=== PATIENT | male | born 1940 | race African-American/Black ===

== ENCOUNTER 2017-01-24 23:17 | Emergency (ER) | payer OTHER ==
[~2017-01-24] VITALS: Ht 170.2 cm; Wt 75.0 kg
[~2017-01-24 23:17] MED LIST: ACET500C PO; ATEN50TA PO; DESM1TAB16 PO; OSEL75 PO
[2017-01-24 23:31] VITALS: BP 122/58; PULSE 64; RESP 18; TEMP 98.3; O2SAT 98
[2017-01-24 23:52] VITALS: BP 122/58; PULSE 64; RESP 18; TEMP 98.3; O2SAT 98
[2017-01-24] MEDS ORDERED: SODIUM CHLOR 0.9% 1000 ML INJ 1,000 ML IV SCH (23:57)
--- NOTE | 2017-01-24 23:57 | PD ---
HPI Chief Complaint: allergic reaction Time Seen by Provider: 23:49 Travel History International Travel<30 days: No Contact w/Intl Traveler<30days: No Traveled to known affect area: No History of Present Illness HPI The patient is a 76-year-old male that at approximately 9 PM today was breathing epoxy fumes as his pipes were being fixed. Almost immediately he began getting some chest tightness and short of breath. He denies any wheezing , syncopal or near syncopal spells. He denies any skin rash. He denies any history of heart disease. PFSH Past Medical History Hx Anticoagulant Therapy: No Arthritis: Yes (BACK AND NECK) Asthma: No Autoimmune Disease: No Blood Disorders: No Anxiety: Yes Depression: Yes Heart Rhythm Problems: No Cancer: No Cardiovascular Problems: Yes (HTN) High Cholesterol: Yes Chemotherapy: No Chest Pain: No Congestive Heart Failure: No COPD: No Cerebrovascular Accident: No Developmental Delay: No Diabetes: No Diminished Hearing: No Endocrine: No Gastrointestinal Disorders: Yes GERD: No Glaucoma: No Genitourinary: No Headaches: Yes Hepatitis: No Hiatal Hernia: No Heparin Induced Thrombocytopen: No Hypertension: Yes Immune Disorder: No Implanted Vascular Access Dvce: No Kidney Stones: No 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) Psychiatric: Yes Reproductive: No Respiratory: No Immunizations Current: No Migraines: No Myocardial Infarction: No Radiation Therapy: No Renal Failure: No Seizures: No Sickle Cell Disease: No Sleep Apnea: No Thyroid Disease: No Ulcer: Yes Past Surgical History Abdominal Surgery: No Appendectomy: No Cardiac Surgery: No Cholecystectomy: No Ear Surgery: No Endocrine Surgery: No Eye Surgery: No Genitourinary Surgery: No Gynecologic Surgery: No Neurologic Surgery: No Oral Surgery: No Thoracic Surgery: No Tonsillectomy: Yes Other Surgery: No Social History Alcohol Use: No Tobacco Use: No Substance Use: Yes (MARIJUANA) Allergies-Medications (Allergen,Severity, Reaction): Coded Allergies: iodine (Verified Allergy, Severe, Swelling, 01/25/17) potassium iodide (Verified Allergy, Severe, Swelling, 01/25/17) povidone-iodine (Verified Allergy, Severe, Swelling, 01/25/17) sodium iodide (Verified Allergy, Severe, Swelling, 01/25/17) sodium iodide (Verified Allergy, Severe, Swelling, 01/25/17) Reported Meds & Prescriptions Reported Meds & Active Scripts Active Zantac (Ranitidine HCl) 150 Mg Tab 150 Mg PO BID Prednisone 50 Mg Tab 50 Mg PO BID 3 Days Tamiflu (Oseltamivir Phosphate) 75 Mg Cap 75 Mg PO BID 5 Days Reported Desmopressin (Desmopressin Acetate) 0.2 Mg Tab 0.2 Mg PO HS Atenolol 50 Mg Tab 50 Mg PO DAILY Review of Systems Except as stated in HPI: all other systems reviewed are Neg Physical Exam Narrative GENERAL: The patient is alert, oriented 3 and slight apparent distress with his chest/lung discomfort. His blood pressure is 122/58 but the rest of his vital signs are normal. SKIN: Focused skin assessment warm/dry. No skin rash is present. HEAD: Atraumatic. Normocephalic. EYES: Pupils equal and round. No scleral icterus. No injection or drainage. ENT: No nasal bleeding or discharge. Mucous membranes pink and moist. NECK: Trachea midline. No JVD. CARDIOVASCULAR: Regular rate and rhythm. No murmur appreciated. RESPIRATORY: No accessory muscle use. Clear to auscultation. Breath sounds equal bilaterally. Specifically, no wheezes are heard. GASTROINTESTINAL: Abdomen soft, non-tender, nondistended. Hepatic and splenic margins not palpable. MUSCULOSKELETAL: No obvious deformities. No clubbing. No cyanosis. No edema. NEUROLOGICAL: Awake and alert. No obvious cranial nerve deficits. Motor grossly within normal limits. Normal speech. PSYCHIATRIC: Appropriate mood and affect; insight and judgment normal. Data Data Last Documented VS Vital Signs Date Time Temp Pulse Resp B/P (MAP) Pulse Ox O2 Delivery O2 Flow Rate FiO2 01/25/17 00:36 66 18 139/75 (96) 99 Room Air 01/24/17 23:52 98.3 Orders Orders Ecg Monitoring (01/24/17 23:57) Iv Access Insert/Monitor (01/24/17 23:57) Oximetry (01/24/17 23:57) Diphenhydramine Inj (Benadryl Inj) (01/25/17 00:00) Albuterol-Ipratropium Neb (Duoneb Neb) (01/25/17 00:00) Sodium Chlor 0.9% 1000 Ml Inj (Ns 1000 M (01/24/17 23:57) Sodium Chloride 0.9% Flush (Ns Flush) (01/25/17 00:00) Epinephrine (1:1000) Inj (Adrenalin (1:1 (01/25/17 00:00) Electrocardiogram (01/24/17 23:57) Complete Blood Count With Diff (01/24/17 23:57) Basic Metabolic Panel (Bmp) (01/24/17 23:57) Creatine Kinase (Cpk) (01/24/17 23:57) Troponin I (01/24/17 23:57) Labs Laboratory Tests Test 01/25/17 00:20 White Blood Count 4.4 TH/MM3 Red Blood Count 3.77 MIL/MM3 Hemoglobin 11.6 GM/DL Hematocrit 34.2 % Mean Corpuscular Volume 90.7 FL Mean Corpuscular Hemoglobin 30.9 PG Mean Corpuscular Hemoglobin Concent 34.1 % Red Cell Distribution Width 13.8 % Platelet Count 235 TH/MM3 Mean Platelet Volume 7.3 FL Neutrophils (%) (Auto) 29.6 % Lymphocytes (%) (Auto) 57.1 % Monocytes (%) (Auto) 7.9 % Eosinophils (%) (Auto) 4.9 % Basophils (%) (Auto) 0.5 % Neutrophils # (Auto) 1.3 TH/MM3 Lymphocytes # (Auto) 2.6 TH/MM3 Monocytes # (Auto) 0.3 TH/MM3 Eosinophils # (Auto) 0.2 TH/MM3 Basophils # (Auto) 0.0 TH/MM3 CBC Comment AUTO DIFF Differential Total Cells Counted 100 Neutrophils % (Manual) 23 % Lymphocytes % 67 % Monocytes % 7 % Eosinophils % 2 % Basophils % 1 % Neutrophils # (Manual) 1.0 TH/MM3 Differential Comment FINAL DIFF MANUAL Platelet Estimate NORMAL Platelet Morphology Comment NORMAL Red Cell Morphology Comment NORMAL Blood Urea Nitrogen 15 MG/DL Creatinine 1.30 MG/DL Random Glucose 104 MG/DL Calcium Level 8.3 MG/DL Sodium Level 138 MEQ/L Potassium Level 3.7 MEQ/L Chloride Level 106 MEQ/L Carbon Dioxide Level 25.8 MEQ/L Anion Gap 6 MEQ/L Estimat Glomerular Filtration Rate 65 ML/MIN Total Creatine Kinase 187 U/L Troponin I LESS THAN 0.02 NG/ML MDM Medical Decision Making Medical Screen Exam Complete: Yes Emergency Medical Condition: Yes Medical Record Reviewed: Yes Interpretation(s) The EKG shows sinus rhythm with rate of [address] elevation or depression. The CBC is normal except for hemoglobin 11.6 and hematocrit of 34.2. The basic metabolic profile is normal except for a calcium of 8.3 and GFR of 65. The cardiac enzymes are normal. Differential Diagnosis Allergic reaction, acute coronary syndrome, acute asthma Narrative Course It is now 1244 and the patient feels much better. He wants to go home. Diagnosis Primary Impression: Allergic reaction Additional Instructions: The Benadryl is one tablet 3 times daily. The prednisone is one tablet twice daily for 3 days followed by one tablet once daily for 3 days. The Zantac is one tablet twice daily. Follow-up with your primary care physician. Scripts Ranitidine (Zantac) 150 Mg Tab 150 MG PO BID for Reduce Stomach Acid, #20 TAB 0 Refills Prov: Manav Orozco MD 01/25/17 Prednisone (Prednisone) 50 Mg Tab 50 MG PO BID for x 3 days than daily X 3 days for 3 Days, #9 TAB 0 Refills Prov: Manav Orozco MD 01/25/17 Disposition: 01 DISCHARGE HOME Condition: Stable Manav Orozco MD Jan 24, 2017 23:57
[2017-01-25] MEDS ORDERED: EPINEPHrine HCL (1:1000) 1 MG/ML VIAL IM ONE
[2017-01-25] MEDS ORDERED: diphenhydrAMINE HCL 50 MG/ML VIAL IVP ONE
[2017-01-25] MEDS ORDERED: SODIUM CHLORIDE 0.9% FLUSH 10 ML FLUSH IV FLUSH PRN
[2017-01-25] MEDS: RESP: ALBUTEROL 2.5 MG/IPRATROPIUM 0.5 MG NEB (SCH) INH ×2 (00:09→00:21)
[2017-01-25 00:29] LABS: AUTOMATED NEUTROPHIL # 1.3 TH/MM3 (1.8-7.7); BASOPHIL % 0.5 % (0.0-2.0); EOSINOPHIL # 0.2 TH/MM3 (0-0.4); EOSINOPHIL % 4.9 % (0.0-4.0); HEMATOCRIT 34.2 % (39.0-51.0); LYMPH % 57.1 % (9.0-44.0); LYMPHOCYTE # 2.6 TH/MM3 (1.0-4.8); MEAN CELL VOLUME 90.7 FL (80.0-100.0); MEAN CORPUSCULAR HEMOGLOBIN 30.9 PG (27.0-34.0); MEAN CORPUSCULAR HGB CONC 34.1 % (32.0-36.0); MONO % 7.9 % (0.0-8.0); NEUT % 29.6 % (16.0-70.0); PLATELET COUNT 235 TH/MM3 (150-450); RED BLOOD COUNT 3.77 MIL/MM3 (4.50-5.90); RED CELL DISTRIBUTION WIDTH 13.8 % (11.6-17.2); WHITE BLOOD COUNT 4.4 TH/MM3 (4.0-11.0)
[2017-01-25 00:34] LABS: HEMO FLAGS AUTO DIFF
[2017-01-25 00:36] VITALS: BP_SYST 139; BP_DIAS 7; BP_DIAS 75; PULSE 66; RESP 18; O2SAT 99
[2017-01-25 00:58] LABS: BASOPHILS 1 % (0-2); EOSINOPHILS 2 % (0-4); PLATELET ESTIMATE SMEAR NORMAL (NORMAL); PLATELET MORPHOLOGY NORMAL (NORMAL); POLYS (SEG NEUTROPHILS) 23 % (16-70); SCAN/DIFF FINAL DIFF MANUAL; WBC DIFF SAMPLE 100
[2017-01-25 01:04] LABS: CHLORIDE 106 MEQ/L (98-107); POTASSIUM 3.7 MEQ/L (3.5-5.1); SODIUM (NA) 138 MEQ/L (136-145)
[2017-01-25] MEDS ORDERED: PRED50 PO (01:05)
[2017-01-25] MEDS ORDERED: ZANT150T2 PO (01:06)
[2017-01-25 01:07] LABS: ANION GAP 6 MEQ/L (5-15); BICARBONATE 25.8 MEQ/L (21.0-32.0); BLOOD UREA NITROGEN 15 MG/DL (7-18)
[2017-01-25 01:11] LABS: GLOMERULAR FILTRATION RATE 65 ML/MIN (>89)
[2017-01-25 01:14] LABS: CREATINE KINASE 187 U/L (39-308)
[2017-01-25 01:58] VITALS: BP 120/65
--- NOTE | 2017-01-25 09:15 | EKG ---
Date Performed: 01/25/2017 Time Performed: 00:07:37 PTAGE: 76 years EKG: Sinus rhythm NONSPECIFIC T-WAVE ABNORMALITY BORDERLINE ECG PREVIOUS TRACING : 04/09/2016 08.45 Compared to prior tracing no significant change DOCTOR: Albaro Solis Interpretating Date/Time 01/25/2017 09:13:01
== END 2017-01-25 02:18 | disposition home or self-care (01) ==
LOC: PHED 23:17
DX: T78.40XA Allergy, unspecified, initial encounter (principal)
CPT/HCPCS: 80048; 82550; 84484; 85007; 85027; 93005; 94640; 94664; 96361; 96372; 96374; 99284; J0171; J1200; J7030

== ENCOUNTER 2017-04-14 08:02 | Emergency (ER) | payer OTHER ==
[~2017-04-14] VITALS: Ht 170.2 cm; Wt 74.0 kg
[~2017-04-14 08:02] MED LIST changes: -ACET500C PO; +PRED50 PO; +ZANT150T2 PO
[2017-04-14 08:09] VITALS: BP 103/58; PULSE 69; RESP 18; TEMP 97.7; O2SAT 97
[2017-04-14] MEDS ORDERED: HYDR-3583 PO (08:20)
[2017-04-14 09:52] LABS: AUTOMATED NEUTROPHIL # 1.1 TH/MM3 (1.8-7.7); BASOPHIL % 1.1 % (0.0-2.0); EOSINOPHIL # 0.2 TH/MM3 (0-0.4); HEMATOCRIT 34.6 % (39.0-51.0); HEMO FLAGS DIFF FINAL; LYMPHOCYTE # 1.2 TH/MM3 (1.0-4.8); MEAN CELL VOLUME 90.2 FL (80.0-100.0); MEAN CORPUSCULAR HGB CONC 33.3 % (32.0-36.0); NEUT % 42.9 % (16.0-70.0); PLATELET COUNT 206 TH/MM3 (150-450); RED BLOOD COUNT 3.83 MIL/MM3 (4.50-5.90); RED CELL DISTRIBUTION WIDTH 13.5 % (11.6-17.2); WHITE BLOOD COUNT 2.7 TH/MM3 (4.0-11.0)
[2017-04-14 10:03] LABS: APTT (PATIENT) 32.7 SEC (24.3-30.1); PROTHROMBIN TIME - PATIENT 10.6 SEC (9.8-11.6)
--- NOTE | 2017-04-14 10:10 | RADRPT ---
EXAM DATE/TIME: 04/14/2017 09:46 [facility] COMPARISON: CT ABDOMEN & PELVIS W/O CONTRAST, May 27, 2014, 23:34. INDICATIONS : Diffuse abdominal pain and diarrhea x 2 days. ORAL CONTRAST: No oral contrast ingested. RADIATION DOSE: 6.87 CTDIvol (mGy) MEDICAL HISTORY : Hypertension. SURGICAL HISTORY : None. ENCOUNTER: Initial ACUITY: 2 days PAIN SCALE: 9/10 LOCATION: Diffuse abdomen. TECHNIQUE: Volumetric scanning of the abdomen and pelvis was performed. Using automated exposure control and ad justment of the mA and/or kV according to patient size, radiation dose was kept as low as reasonably achievable to obtain optimal diagnostic quality images. DICOM format image data is available electro nically for review and comparison. FINDINGS: LOWER LUNGS: Posterior bibasilar atelectasis and/or mild infiltrates are noted. LIVER: Homogeneous density without lesion. There is no dilation of the biliary tree. No calcified gallston es. SPLEEN: Normal size without lesion. PANCREAS: Within normal limits. KIDNEYS: Normal in size and shape. There is no solid mass, stone, or hydronephrosis. There is a large 7.6 cm stable left renal cyst. ADRENAL GLANDS: Within normal limits. VASCULAR: There is no aortic aneurysm. BOWEL/MESENTERY: Extensive uncomplicated colonic diverticulosis is noted. No acute diverticulitis is noted. The append ix is normal. ABDOMINAL WALL: There is a small left inguinal hernia containing only fat. RETROPERITONEUM: There is no lymphadenopathy. BLADDER: No wall thickening or mass. REPRODUCTIVE: Within normal limits. INGUINAL: There is no lymphadenopathy. MUSCULOSKELETAL: Within normal limits for patient age. CONCLUSION: 1. Uncomplicated colonic diverticulosis. 2. Small left inguinal hernia containing only fat. 3. Stable left renal cyst measuring 7.6 cm. 4. Minimal posterior bibasilar atelectasis and/or mild infiltrates. Hernesto Mendez MD on April 14, 2017 at 10:03 Board Certified Radiologist. This report was verified electronically.
--- NOTE | 2017-04-14 10:13 | RADRPT ---
EXAM DATE/TIME: 04/14/2017 09:49 [facility] COMPARISON: CHEST SINGLE AP, April 09, 2016, 9:01. INDICATIONS : Cough, congestion, short of breath. MEDICAL HISTORY : Hypertension. SURGICAL HISTORY : None. ENCOUNTER: Initial ACUITY: 3 days PAIN SCORE: 0/10 LOCATION: Bilateral chest FINDINGS: A single view of the chest demonstrates the lungs to be symmetrically aerated without evidence of mas s, infiltrate or effusion. The cardiomediastinal contours are unremarkable. Osseous structures are intact. CONCLUSION: No acute cardiopulmonary process. Panchito Castorena MD on April 14, 2017 at 10:11 Board Certified Radiologist. This report was verified electronically.
--- NOTE | 2017-04-14 10:16 | PD ---
HPI Chief Complaint: Cold / Flu Symptoms Time Seen by Provider: 09:20 Travel History International Travel<30 days: No Contact w/Intl Traveler<30days: No Traveled to known affect area: No History of Present Illness HPI 76yo M here with SIADH here with multiple complaints. Said he has been coughing , having throat pain, generalized weakness, abdominal cramping, diarrhea for a few days. Also feels a little sob. Arnett warm last night. Denies any chest pain, vomiting, dysuria, hematuria, focal weakness or numbness. PFSH Past Medical History Hx Anticoagulant Therapy: No Arthritis: Yes (BACK AND NECK) Asthma: No Autoimmune Disease: No Blood Disorders: No Anxiety: Yes Depression: Yes Heart Rhythm Problems: No Cancer: No Cardiovascular Problems: Yes (HTN) High Cholesterol: Yes Chemotherapy: No Chest Pain: No Congestive Heart Failure: No COPD: No Cerebrovascular Accident: No Developmental Delay: No Diabetes: No Diminished Hearing: No Endocrine: No Gastrointestinal Disorders: Yes GERD: No Glaucoma: No Genitourinary: No Headaches: Yes Hepatitis: No Hiatal Hernia: No Heparin Induced Thrombocytopen: No Hypertension: Yes Immune Disorder: No Implanted Vascular Access Dvce: No Kidney Stones: No 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) Psychiatric: Yes Reproductive: No Respiratory: No Immunizations Current: No Migraines: No Myocardial Infarction: No Radiation Therapy: No Renal Failure: No Seizures: No Sickle Cell Disease: No Sleep Apnea: No Thyroid Disease: No Ulcer: Yes Past Surgical History Abdominal Surgery: No Appendectomy: No Cardiac Surgery: No Cholecystectomy: No Ear Surgery: No Endocrine Surgery: No Eye Surgery: No Genitourinary Surgery: No Gynecologic Surgery: No Neurologic Surgery: No Oral Surgery: No Thoracic Surgery: No Tonsillectomy: Yes Other Surgery: No Social History Alcohol Use: No Tobacco Use: No Substance Use: Yes (MARIJUANA) Allergies-Medications (Allergen,Severity, Reaction): Coded Allergies: iodine (Verified Allergy, Severe, Swelling, 04/14/17) potassium iodide (Verified Allergy, Severe, Swelling, 04/14/17) povidone-iodine (Verified Allergy, Severe, Swelling, 04/14/17) sodium iodide (Verified Allergy, Severe, Swelling, 04/14/17) sodium iodide (Verified Allergy, Severe, Swelling, 11/16/17) Reported Meds & Prescriptions Reported Meds & Active Scripts Active Reported Hydrocodone-Acetaminophen 10-325 mg Tab 1 Tab PO Q6H PRN Desmopressin (Desmopressin Acetate) 0.2 Mg Tab 0.2 Mg PO HS Atenolol 50 Mg Tab 50 Mg PO DAILY Review of Systems Except as stated in HPI: all other systems reviewed are Neg Physical Exam Narrative GENERAL: 76yo M in mild distress. SKIN: Focused skin assessment warm/dry. HEAD: Atraumatic. Normocephalic. EYES: Pupils equal and round. No scleral icterus. No injection or drainage. ENT: Throat: Uvula midline. No erythema. NECK: Trachea midline. No JVD. CARDIOVASCULAR: Regular rate and rhythm. No murmur appreciated. RESPIRATORY: No accessory muscle use. Clear to auscultation. Breath sounds equal bilaterally. GASTROINTESTINAL: Abdomen soft, +TTP LUQ. No rebound tenderness or guarding. MUSCULOSKELETAL: No obvious deformities. No clubbing. No cyanosis. No edema. NEUROLOGICAL: Awake and alert. No obvious cranial nerve deficits. Motor grossly within normal limits. Normal speech. PSYCHIATRIC: Appropriate mood and affect; insight and judgment normal. Data Data Last Documented VS Vital Signs Date Time Temp Pulse Resp B/P (MAP) Pulse Ox O2 Delivery O2 Flow Rate FiO2 04/14/17 09:09 18 97 Room Air 04/14/17 08:09 97.7 69 103/58 (73) Orders Orders Electrocardiogram (04/14/17 ) Complete Blood Count With Diff (04/14/17 09:27) Basic Metabolic Panel (Bmp) (04/14/17 09:27) Prothrombin Time / Inr (Pt) (04/14/17 09:27) Act Partial Throm Time (Ptt) (04/14/17 09:27) Troponin I (04/14/17 09:27) Chest, Single Ap (04/14/17 ) Urinalysis - C+S If Indicated (04/14/17 09:27) Influenzae A/B Antigen (04/14/17 09:27) Group A Rapid Strep Screen (04/14/17 09:27) Magnesium (Mg) (04/14/17 09:27) Ct Abd/Pel W/O Iv Contrast (04/14/17 ) Strep Culture (Group A) (04/14/17 10:02) Guaifenesin Liq (Robitussin Liq) (04/14/17 11:30) Diazepam (Valium) (04/14/17 11:30) Labs Laboratory Tests Test 04/14/17 09:44 04/14/17 10:31 04/14/17 11:35 White Blood Count 2.7 TH/MM3 Red Blood Count 3.83 MIL/MM3 Hemoglobin 11.5 GM/DL Hematocrit 34.6 % Mean Corpuscular Volume 90.2 FL Mean Corpuscular Hemoglobin 30.0 PG Mean Corpuscular Hemoglobin Concent 33.3 % Red Cell Distribution Width 13.5 % Platelet Count 206 TH/MM3 Mean Platelet Volume 7.7 FL Neutrophils (%) (Auto) 42.9 % Lymphocytes (%) (Auto) 41.0 % Monocytes (%) (Auto) 7.0 % Eosinophils (%) (Auto) 8.0 % Basophils (%) (Auto) 1.1 % Neutrophils # (Auto) 1.1 TH/MM3 Lymphocytes # (Auto) 1.2 TH/MM3 Monocytes # (Auto) 0.2 TH/MM3 Eosinophils # (Auto) 0.2 TH/MM3 Basophils # (Auto) 0.0 TH/MM3 CBC Comment DIFF FINAL Differential Comment Prothrombin Time 10.6 SEC Prothromb Time International Ratio 1.0 RATIO Activated Partial Thromboplast Time 32.7 SEC Blood Urea Nitrogen 17 MG/DL Creatinine 1.20 MG/DL Random Glucose 83 MG/DL Calcium Level 8.3 MG/DL Magnesium Level 2.5 MG/DL Sodium Level 137 MEQ/L Potassium Level 4.1 MEQ/L Chloride Level 102 MEQ/L Carbon Dioxide Level 26.6 MEQ/L Anion Gap 8 MEQ/L Estimat Glomerular Filtration Rate 71 ML/MIN Troponin I LESS THAN 0.02 NG/ML Urine Collection Type CLEAN CATCH Urine Color YELLOW Urine Turbidity CLEAR Urine pH 6.0 Urine Specific [place] 1.025 Urine Protein NEG mg/dL Urine Glucose (UA) NEG mg/dL Urine Ketones NEG mg/dL Urine Occult Blood NEG Urine Nitrite NEG Urine Bilirubin NEG Urine Leukocyte Esterase NEG Urine RBC 0-3 /hpf Urine Squamous Epithelial Cells 0-5 /hpf Microscopic Urinalysis Comment CULT NOT INDICATED Urine Collection Time 11:35 [facility] Medical Decision Making Medical Screen Exam Complete: Yes Emergency Medical Condition: Yes Interpretation(s) EKG: NSR 66bpm. Normal axis. No ST segment elevation or depression. Differential Diagnosis Viral syndrome vs. influenza vs. diverticulitis vs. pneumonia vs. UTI Narrative Course 76yo M with multiple complaints. No fever or tachycardia. Labs reviewed, leukopenia with WBC 2.7. Pt has always had this before. Neutrophil # has not really changed from before. Normal platelet. H/H low at 11.5/34.6 but at baseline and pt said he has anemia and takes iron. BMP unremarkable. Troponin negative. CT a/p showed uncomplicated colonic diverticulosis. Small left inguinal hernia containing only fat. Minimal posterior bibasilar atelectasis and or mild infiltrates. Can cover with azithromycin. CXR negative. Denies any chest pain or sob now. Saturating at 97% on RA and not in distress. Pt is concern about his cough. Said it improved after robitussin. Pain also improved after valium. Abdomen is soft, NT/ND. UA negative. Influenza A and group A strep. [facility] Point of Care Internal Pos. & Neg. Controls: Passed Fecal Specimen Occult Blood: Negative Diagnosis Primary Impression: Viral syndrome Patient Instructions: General Instructions Departure Forms: Tests/Procedures Additional Instructions: Please follow up with your primary care physician in 1-2 days. Return to the ED if symptoms worsen. Med/Other Pt SpecificInfo: Prescription(s) given Scripts Acetaminophen (Tylenol) 325 Mg Tab 325 MG PO Q4H Y for PAIN SCALE 1 TO 4 for 5 Days, #30 TAB 0 Refills Prov: RamaChayito DO 04/14/17 Dextromethorphan (Robitussin Lingering Cold) 15 Mg Cap 30 MG PO Q6H Y for COUGH for 5 Days, #40 CAP 0 Refills Prov: Chayito Ontiveors DO 04/14/17 Azithromycin (Zithromax Z-Benjamín) 250 Mg Dspk 250 MG PO DIRECTED for Infection, #1 DSPK 0 Refills 500 MG (2 tabs) day 1, then 1 tab days 2-5. Prov: OntiverosChayito DO 04/14/17 Disposition: 01 DISCHARGE HOME Condition: Stable Chayito Ontiveros Apr 14, 2017 10:16
[2017-04-14 10:46] LABS: CHLORIDE 102 MEQ/L (98-107); POTASSIUM 4.1 MEQ/L (3.5-5.1); SODIUM (NA) 137 MEQ/L (136-145)
[2017-04-14 10:49] LABS: ANION GAP 8 MEQ/L (5-15); BICARBONATE 26.6 MEQ/L (21.0-32.0); BLOOD UREA NITROGEN 17 MG/DL (7-18); MAGNESIUM 2.5 MG/DL (1.5-2.5)
[2017-04-14 10:53] LABS: GLOMERULAR FILTRATION RATE 71 ML/MIN (>89)
[2017-04-14] MEDS ORDERED: guaiFENesin SOLUTION 200 MG/10 ML CUP PO ONE (11:30)
[2017-04-14] MEDS ORDERED: DIAZEPAM 5 MG TAB PO ONE (11:30)
[2017-04-14 11:45] LABS: BLOOD, URINE NEG (NEG); GLUCOSE,URINE NEG (NEG); KETONE, URINE NEG (NEG); NITRITE,URINE NEG (NEG)
[2017-04-14 11:57] LABS: COMMENT (UR) CULT NOT INDICATED; CULTURE IF INDICATED CULT NOT INDICATED; METHOD OF COLLECTION CLEAN CATCH; RBC, URINE 0-3 /hpf (0-3); SQUAMOUS EPITHELIAL CELL URINE 0-5 /hpf (0-5); URINE COLOR YELLOW (YELLW/STRAW)
[2017-04-14] MEDS ORDERED: ROBICAP2 PO (12:24)
[2017-04-14] MEDS ORDERED: ZITHTAB PO (12:24)
[2017-04-14] MEDS ORDERED: TYLE325T PO (12:24)
[2017-04-14 12:43] VITALS: BP 119/74
--- NOTE | 2017-04-15 15:26 | EKG ---
Date Performed: 04/14/2017 Time Performed: 10:06:25 PTAGE: 76 years EKG: Sinus rhythm NONSPECIFIC T-WAVE ABNORMALITY BORDERLINE ECG Since PREVIOUS TRACING , no significant change noted PREVIOUS TRACIN01/25/2017 00.07 DOCTOR: Amandeep Frances Interpretating Date/Time 04/15/2017 15:25:06
== END 2017-04-14 12:48 | disposition home or self-care (01) ==
LOC: PHED 08:02 → PHEFT 12:48
DX: B34.9 Viral infection, unspecified (principal); R06.02 Shortness of breath; R94.31 Abnormal electrocardiogram [ECG] [EKG]; R53.1 Weakness; F32.9 Major depressive disorder, single episode, unspecified; I10 Essential (primary) hypertension
CPT/HCPCS: 71010; 74176; 80048; 81001; 83735; 84484; 85025; 85610; 85730; 87081; 87804; 87880; 93005

== ENCOUNTER 2017-07-11 21:04 | Emergency (ER) | payer OTHER ==
[~2017-07-11] VITALS: Ht 170.2 cm; Wt 74.1 kg
[~2017-07-11 21:04] MED LIST changes: +HYDR-3583 PO; -OSEL75 PO; -PRED50 PO; +ROBICAP2 PO; +TYLE325T PO; -ZANT150T2 PO; +ZITHTAB PO
[2017-07-11 22:13] VITALS: BP 124/67; PULSE 55; RESP 18; TEMP 98.4; O2SAT 100
[2017-07-11] MEDS ORDERED: LORA1TAB12 PO (23:28)
[2017-07-11] MEDS ORDERED: CHOLESTEROL MED PO (23:29)
--- NOTE | 2017-07-11 23:48 | PD ---
HPI Chief Complaint: Pain: Acute or Chronic Time Seen by Provider: 23:47 Travel History International Travel<30 days: No Contact w/Intl Traveler<30days: No Traveled to known affect area: No History of Present Illness HPI 77-year-old male came to the emergency room with history of bilateral leg pain left worse than right and some shortness of breath. Since as that the leg pain has been going on for past couple days. He has had phlebitis in the legs but has never been on any blood thinners. He says his shortness of breath is better now. Signs were relatively stable. Patient appears to be in discomfort mainly from the leg pain he said. The pain is there constantly and worse when he walks. No history of fever or chills. No recent travel or prolonged immobilization due to surgery or hospitalization. PFSH Past Medical History Narrative Medical List of his past medical, surgical, social and family history reviewed from the nursing note. Hx Anticoagulant Therapy: Yes Arthritis: Yes (BACK AND NECK) Asthma: No Autoimmune Disease: No Blood Disorders: No Anxiety: Yes Depression: Yes Heart Rhythm Problems: No Cancer: No Cardiovascular Problems: Yes (HTN, PHLEBITIS) High Cholesterol: Yes Chemotherapy: No Chest Pain: No Congestive Heart Failure: No COPD: No Cerebrovascular Accident: No Developmental Delay: No Diabetes: No Diminished Hearing: No Endocrine: No Gastrointestinal Disorders: Yes GERD: No Glaucoma: No Genitourinary: No Headaches: Yes Hepatitis: No Hiatal Hernia: No Heparin Induced Thrombocytopen: No Hypertension: Yes Immune Disorder: No Implanted Vascular Access Dvce: No Kidney Stones: No 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) Psychiatric: Yes Reproductive: No Respiratory: No Immunizations Current: No Migraines: No Myocardial Infarction: No Radiation Therapy: No Renal Failure: No Seizures: No Sickle Cell Disease: No Sleep Apnea: No Thyroid Disease: No Ulcer: Yes Influenza Vaccination: Yes Past Surgical History Abdominal Surgery: No Appendectomy: No Cardiac Surgery: No Cholecystectomy: No Ear Surgery: No Endocrine Surgery: No Eye Surgery: No Genitourinary Surgery: No Gynecologic Surgery: No Neurologic Surgery: No Oral Surgery: No Thoracic Surgery: No Tonsillectomy: Yes Other Surgery: No Social History Alcohol Use: No Tobacco Use: No Substance Use: Yes (MARIJUANA) Allergies-Medications (Allergen,Severity, Reaction): Coded Allergies: iodine (Verified Allergy, Severe, Swelling, 07/12/17) potassium iodide (Verified Allergy, Severe, Swelling, 07/12/17) povidone-iodine (Verified Allergy, Severe, Swelling, 07/12/17) sodium iodide (Verified Allergy, Severe, Swelling, 07/12/17) sodium iodide (Verified Allergy, Severe, Swelling, 07/12/17) Comments List of his allergies reviewed from the nursing note. Reported Meds & Prescriptions Reported Meds & Active Scripts Active Xarelto Starter Pack 15 & 20 mg (Rivaroxaban) 15 Mg (42)- 20 Mg (9) Tab 1 Tab PO DIRECTED 30 Days Tylenol (Acetaminophen) 325 Mg Tab 325 Mg PO Q4H PRN 5 Days Reported [Cholesterol Med] 1 Tab PO HS Lorazepam 1 Mg Tab 1 Mg PO Q8H PRN Hydrocodone-Acetaminophen 10-325 mg Tab 1 Tab PO Q6H PRN Desmopressin (Desmopressin Acetate) 0.2 Mg Tab 0.2 Mg PO HS Atenolol 50 Mg Tab 50 Mg PO DAILY Narrative Medication List of his home medications reviewed from the nursing note. Review of Systems Except as stated in HPI: all other systems reviewed are Neg Respiratory: Positive: Shortness of Breath Musculoskeletal: Positive: Pain Physical Exam Narrative GENERAL: Awake, alert, moderate distress SKIN: Focused skin assessment warm/dry. HEAD: Atraumatic. Normocephalic. EYES: Pupils equal and round. No scleral icterus. No injection or drainage. ENT: No nasal bleeding or discharge. Mucous membranes pink and moist. NECK: Trachea midline. No JVD. CARDIOVASCULAR: Regular rate and rhythm. No murmur appreciated. RESPIRATORY: No accessory muscle use. Clear to auscultation. Breath sounds equal bilaterally. GASTROINTESTINAL: Abdomen soft, non-tender, nondistended. Hepatic and splenic margins not palpable. MUSCULOSKELETAL: No obvious deformities. No clubbing. No cyanosis. No edema. NEUROLOGICAL: Awake and alert. No obvious cranial nerve deficits. Motor grossly within normal limits. Normal speech. PSYCHIATRIC: Appropriate mood and affect; insight and judgment normal. Data Data Last Documented VS Vital Signs Date Time Temp Pulse Resp B/P (MAP) Pulse Ox O2 Delivery O2 Flow Rate FiO2 07/12/17 02:20 72 18 112/64 (80) 98 07/12/17 01:15 Room Air 07/11/17 22:13 98.4 Orders Orders Complete Blood Count With Diff (07/11/17 23:50) Basic Metabolic Panel (Bmp) (07/11/17 23:50) Prothrombin Time / Inr (Pt) (07/11/17 23:50) Creatine Kinase (Cpk) (07/11/17 23:50) Us Leg Venous Doppler Bilat (07/11/17 ) Ketorolac Inj (Toradol Inj) (07/12/17 00:00) Ketorolac Inj (Toradol Inj) (07/12/17 00:00) Rivaroxaban (Xarelto) (07/12/17 02:00) Ed Discharge Order (07/12/17 01:52) Labs Laboratory Tests Test 07/11/17 23:55 White Blood Count 3.9 TH/MM3 Red Blood Count 3.89 MIL/MM3 Hemoglobin 11.5 GM/DL Hematocrit 35.1 % Mean Corpuscular Volume 90.2 FL Mean Corpuscular Hemoglobin 29.6 PG Mean Corpuscular Hemoglobin Concent 32.9 % Red Cell Distribution Width 14.1 % Platelet Count 215 TH/MM3 Mean Platelet Volume 7.7 FL Neutrophils (%) (Auto) 25.3 % Lymphocytes (%) (Auto) 62.1 % Monocytes (%) (Auto) 6.7 % Eosinophils (%) (Auto) 4.9 % Basophils (%) (Auto) 1.0 % Neutrophils # (Auto) 1.0 TH/MM3 Lymphocytes # (Auto) 2.4 TH/MM3 Monocytes # (Auto) 0.3 TH/MM3 Eosinophils # (Auto) 0.2 TH/MM3 Basophils # (Auto) 0.0 TH/MM3 CBC Comment AUTO DIFF Differential Total Cells Counted 100 Neutrophils % (Manual) 24 % Lymphocytes % 42 % Monocytes % 6 % Eosinophils % 6 % Basophils % 2 % Neutrophils # (Manual) 0.9 TH/MM3 Differential Comment FINAL DIFF MANUAL Atypical Lymphocytes 20 % Platelet Estimate NORMAL Platelet Morphology Comment NORMAL Red Cell Morphology Comment NORMAL Prothrombin Time 10.5 SEC Prothromb Time International Ratio 1.0 RATIO Blood Urea Nitrogen 15 MG/DL Creatinine 1.10 MG/DL Random Glucose 100 MG/DL Calcium Level 8.3 MG/DL Sodium Level 133 MEQ/L Potassium Level 4.0 MEQ/L Chloride Level 100 MEQ/L Carbon Dioxide Level 28.7 MEQ/L Anion Gap 4 MEQ/L Estimat Glomerular Filtration Rate 78 ML/MIN Total Creatine Kinase 236 U/L MDM Medical Decision Making Medical Screen Exam Complete: Yes Emergency Medical Condition: Yes Medical Record Reviewed: Yes Differential Diagnosis DVT, PE, muscular skin pain, rhabdomyolysis Narrative Course 2:11 AM blood test results of back and within acceptable limits. Ultrasound of the legs showed left lower extremity nonocclusive DVT. I had ordered a CT pulmonary angiogram to rule out PE but I was pointed out that patient has allergic to IV contrast. At this point since he's not in any respiratory distress and hypoxic I'm comfortable starting him on Xarelto and discharging him home with a prescription for Xarelto. He does have a primary care. I have asked him to follow up with the primary care. This plan has been discussed with the patient and he understands. Procedures EKG Prior to Arrival: No Diagnosis Primary Impression: Deep venous thrombosis Qualified Codes: I82.412 - Acute embolism and thrombosis of left femoral vein Referrals: Primary Care Physician 3 days Additional Instructions: Please get the prescription filled and start taking it as per the direction. There is a coupon given for 1 month free supply which the pharmacy should honor. Return to the ER if the condition worsens or any other new concerns. Otherwise follow-up with your primary care to get further prescriptions for the blood thinners. Med/Other Pt SpecificInfo: Prescription(s) given Scripts Rivaroxaban Starter Pack 15 & 20 mg (Xarelto Starter Pack 15 & 20 mg) 15 Mg (42) - 20 Mg (9) Tab 1 TAB PO DIRECTED for Blood Clot Prevention for 30 Days, PACK 0 Refills Prov: Leanna Gillis MD 07/12/17 Disposition: 01 DISCHARGE HOME Condition: Stable Leanna Gillis MD Jul 11, 2017 23:48
[2017-07-12] MEDS ORDERED: KETOROLAC TROMETHAMINE 60 MG/2 ML (IM) VIAL IM ONE
[2017-07-12] MEDS ORDERED: KETOROLAC TROMETHAMINE 30 MG/ML (IVP) VIAL IV PUSH ONE
[2017-07-12 00:10] VITALS: BP 125/68; PULSE 70; RESP 18; O2SAT 100
[2017-07-12 00:21] LABS: EOSINOPHIL # 0.2 TH/MM3 (0-0.4); EOSINOPHIL % 4.9 % (0.0-4.0); HEMATOCRIT 35.1 % (39.0-51.0); HEMOGLOBIN 11.5 GM/DL (13.0-17.0); LYMPH % 62.1 % (9.0-44.0); LYMPHOCYTE # 2.4 TH/MM3 (1.0-4.8); MEAN CELL VOLUME 90.2 FL (80.0-100.0); MEAN CORPUSCULAR HEMOGLOBIN 29.6 PG (27.0-34.0); MEAN CORPUSCULAR HGB CONC 32.9 % (32.0-36.0); MEAN PLATELET VOLUME 7.7 FL (7.0-11.0); MONO % 6.7 % (0.0-8.0); MONOCYTE # 0.3 TH/MM3 (0-0.9); NEUT % 25.3 % (16.0-70.0); PLATELET COUNT 215 TH/MM3 (150-450); RED BLOOD COUNT 3.89 MIL/MM3 (4.50-5.90); RED CELL DISTRIBUTION WIDTH 14.1 % (11.6-17.2); WHITE BLOOD COUNT 3.9 TH/MM3 (4.0-11.0)
[2017-07-12 00:35] LABS: BICARBONATE 28.7 MEQ/L (21.0-32.0); CALCIUM 8.3 MG/DL (8.5-10.1)
[2017-07-12 00:37] LABS: PROTHROMBIN TIME - PATIENT 10.5 SEC (9.8-11.6)
[2017-07-12 00:38] LABS: CREATININE 1.1 MG/DL (0.60-1.30)
[2017-07-12 01:01] LABS: ATYPICAL LYMPHOCYTES 20 % (0-0); BASOPHILS 2 % (0-2); LYMPHOCYTES 42 % (9-44); MONOCYTES 6 % (0-8); NEUTROPHIL # MANUAL DIFF 0.9 TH/MM3 (1.8-7.7); POLYS (SEG NEUTROPHILS) 24 % (16-70)
[2017-07-12 01:15] VITALS: BP 112/59; PULSE 87; RESP 18; O2SAT 99
--- NOTE | 2017-07-12 01:16 | RADRPT ---
EXAM DATE/TIME: 07/12/2017 00:39 [facility] COMPARISON: No previous studies available for comparison. INDICATIONS : Bilateral leg pain. MEDICAL HISTORY : Hypercholesterolemia. Arthritis. Hypertension. Pituitary benign tumor. Phlebitis. Ulcer. Depression. Anxiety. Substance use. Anticoagulant therapy. SURGICAL HISTORY : Tonsillectomy. ENCOUNTER: Initial ACUITY: 1 day PAIN SCORE: 4/10 LOCATION: Bilateral leg. TECHNIQUE: Venous ultrasound of the left and right leg was performed from the inguinal ligament to the proximal calf. Real-time, color Doppler and spectral tracing, compression and augmentation techniques were us ed. FINDINGS: The right common femoral, femoral, popliteal, peroneal, posterior tibial and greater saphenous veins are patent with a normal love scale and color Doppler appearance. On the left however there is nonocc lusive thrombus identified within the common femoral vein and proximal femoral vein. Mid and distal p ortions of the femoral vein, popliteal, peroneal, posterior tibial and greater saphenous veins are pa tent. The bilateral iliac veins are patent. CONCLUSION: Nonocclusive thrombus in the left common femoral and femoral veins. Dieter Howard MD on July 12, 2017 at 1:12 Board Certified Radiologist. This report was verified electronically.
[2017-07-12 01:17] VITALS: RESP 18
[2017-07-12] MEDS ORDERED: RIVA1TAB PO (01:55)
[2017-07-12] MEDS ORDERED: RIVAROXABAN 15 MG TAB PO ONE (02:00)
[2017-07-12 02:20] VITALS: BP 112/64
== END 2017-07-12 02:26 | disposition home or self-care (01) ==
LOC: PHED 21:04
DX: I82.412 Acute embolism and thrombosis of left femoral vein (principal); M79.604 Pain in right leg; R06.02 Shortness of breath; I10 Essential (primary) hypertension; E78.00 Pure hypercholesterolemia, unspecified; M19.90 Unspecified osteoarthritis, unspecified site; Z79.01 Long term (current) use of anticoagulants; Z86.69 Personal history of other diseases of the nervous system and sense organs; Z86.59 Personal history of other mental and behavioral disorders; Z87.19 Personal history of other diseases of the digestive system
CPT/HCPCS: 80048; 82550; 85007; 85027; 85610; 93970; 96374; 99284; J1885